=== PATIENT | female | born 1985 | race African-American/Black ===

== ENCOUNTER 2017-06-05 23:38 | Emergency (ER) | payer OTHER ==
[~2017-06-05] VITALS: Ht 165.1 cm; Wt 103.0 kg
[2017-06-06 00:01] VITALS: BP 161/113
[2017-06-06] MEDS ORDERED: IBUP-1007 PO (00:28)
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
== END 2017-06-06 01:08 | disposition home or self-care (01) ==
LOC: ER 23:38 → EEVIPCON 23:38 → ER 06-06 01:08
DX: S16.1XXA Strain of muscle, fascia and tendon at neck level, initial encounter (principal); H11.32 Conjunctival hemorrhage, left eye; Z88.2 Allergy status to sulfonamides; Z91.040 Latex allergy status; Y08.89XA Assault by other specified means, initial encounter; Y93.89 Activity, other specified; Y92.89 Other specified places as the place of occurrence of the external cause; Y99.8 Other external cause status
CPT/HCPCS: 99282

== ENCOUNTER 2017-11-15 15:57 | Emergency (ER) | payer OTHER | END 2017-11-15 17:21 | disposition home or self-care (01) | LOC: ER 15:57 | DX: H92.02 Otalgia, left ear (principal); R05 Cough; R09.81 Nasal congestion; J02.9 Acute pharyngitis, unspecified; I10 Essential (primary) hypertension; Z88.2 Allergy status to sulfonamides; Z91.040 Latex allergy status | CPT/HCPCS: 99283 ==

== ENCOUNTER 2018-02-07 18:36 | Emergency (ER) | payer OTHER ==
[2018-02-07 19:16] LABS: URINE HCG POC HCG NEGATIVE (Negative)
[2018-02-07 19:17] LABS: ADD MAN DIFF? NO
[2018-02-07 19:23] LABS: BASO % 1 % (0-3); EOS # 0.1 x10^3/uL (0.0-0.7); EOS % 2 % (0-3); HEMATOCRIT 36.8 % (36.0-47.0); HEMOGLOBIN 12.1 g/dL (12.0-15.5); LYMPH # 2.3 x10^3/uL (1.0-4.8); LYMPH % 39 % (24-48); MEAN CORPUSCULAR HEMOGLOBIN 28 pg (25-35); MEAN CORPUSCULAR HGB CONC 33 g/dL (31-37); MEAN CORPUSCULAR VOLUME 86 fL (79-100); MONO # 0.5 x10^3/uL (0.0-1.1); MONO % 8 % (0-9); NEUT # 2.9 x10^3uL (1.8-7.7); NEUT % 50 % (31-73); PLATELET COUNT 324 x10^3/uL (140-400); RED BLOOD COUNT 4.31 x10^6/uL (3.50-5.40); RED CELL DISTRIBUTION WIDTH 14.7 % (11.5-14.5); WHITE BLOOD COUNT 5.8 x10^3/uL (4.0-11.0)
[2018-02-07 19:24] LABS: BILIRUBIN,URINE NEGATIVE (NEG); CLARITY,URINE CLEAR; COLOR,URINE YELLOW; GLUCOSE,URINE NEGATIVE (NEG); NITRITE,URINE POSITIVE (NEG); PROTEIN,URINE NEGATIVE (NEG-TRACE)
[2018-02-07] MEDS: KETOROLAC 30 MG/ML INJ. IV (19:32)
[2018-02-07 19:43] LABS: ANION GAP 12 (6-14); BLOOD UREA NITROGEN 9 mg/dL (7-20); BUN/CREATININE RATIO 13 (6-20); CARBON DIOXIDE 26 mmol/L (21-32); CHLORIDE 107 mmol/L (98-107); CREATININE 0.7 mg/dL (0.6-1.0); GFR 118.9; GLUCOSE 104 mg/dL (70-99); POTASSIUM 3.4 mmol/L (3.5-5.1); SODIUM 145 mmol/L (136-145)
[2018-02-07 19:49] LABS: ALBUMIN 3.6 g/dL (3.4-5.0); ALBUMIN/GLOBULIN RATIO 0.8 (1.0-1.7); ALK PHOS 116 U/L (46-116); ALT (SGPT) 19 U/L (14-59); AST (SGOT) 17 U/L (15-37); TOTAL BILIRUBIN 0.2 mg/dL (0.2-1.0); TOTAL PROTEIN 8.3 g/dL (6.4-8.2)
[2018-02-07 19:54] LABS: CKMB INDEX 0.3 % (0-4); CKMB MASS 0.5 ng/mL (0.0-3.6); CREATINE KINASE 190 U/L (26-192)
[2018-02-07 19:57] LABS: TROPONINI < 0.017 ng/mL (0.000-0.055)
[2018-02-07 20:23] LABS: RBC,URINE OCC /HPF (0-2)
[2018-02-07 20:24] LABS: BACTERIA,URINE MANY /HPF (0-FEW); SQUAMOUS EPITHELIAL CELL,UR MANY /LPF
== END 2018-02-07 20:35 | disposition home or self-care (01) ==
LOC: ER 18:36
DX: R07.89 Other chest pain (principal); N39.0 Urinary tract infection, site not specified; Z88.2 Allergy status to sulfonamides; Z91.040 Latex allergy status
CPT/HCPCS: 36415; 71046; 80053; 81001; 81025; 82553; 84484; 85025; 93005; 96374; 99285-25; J1885